=== PATIENT | female | born 1965 | race Caucasian/White ===

== ENCOUNTER → 2016-12-06 | Day surgery (SDC) | payer OTHER ==
[~2016-12-06] VITALS: Ht 154.9 cm; Wt 134.3 kg
[~2016-12-06] MED LIST: ACETAMINOPHEN 650 MG SUPP As Ordered ONE; ACETAMINOPHEN 650 MG SUPP PR ONE; BACL10TA GT; CINN500C9 PO; GLIP10TA6 PO; IBUP200C PO; IBUP800T23 PO; IBUPROFEN 800 MG TAB PO SCH; INSULADS INJ; INSULANT SC; KETOROLAC 60 MG/2 ML VIAL (J1885) As Ordered ONE; LIDOCAINE 2% INJ 100 MG/5 ML SDV (FOR ANES.) As Ordered ONE; LISI40TAB PO; LR 1,000 ML IV SCH; METOCLOPRAMIDE INJ 10MG/2ML VIAL (J2765) As Ordered ONE; METOCLOPRAMIDE INJ 10MG/2ML VIAL (J2765) IV PRN; MIDAZOLAM INJ 2 MG/2 ML VIAL (J2250) As Ordered ONE; ONDANSETRON 4MG/2ML VIAL (J2405) As Ordered ONE; ONDANSETRON 4MG/2ML VIAL (J2405) IV PRN; PERCOCET 5MG/325MG TAB PO PRN; PHENYLEPHRINE INJ 10MG/ML VIAL (J2370) IV ONE; PHENYLEPHRINE INJ 10MG/ML VIAL (J2370) IV SCH; PHENYLephrine HCL 500 MCG/5 ML (100MCG/ML) SYRINGE (J2370) As Ordered ONE; PROPOFOL 200 MG/20 ML VIAL As Ordered ONE; VITA100054 PO; fentaNYL 100 MCG/2 ML INJECTION (J3010) As Ordered ONE; fentaNYL 100 MCG/2 ML INJECTION (J3010) IV PRN
[2016-12-06 08:13] LABS: ANION GAP 8 MEQ/L (8-16); BLOOD UREA NITROGEN 17 MG/DL (7-18); CALCIUM LEVEL 9.1 MG/DL (8.5-10.1); CARBON DIOXIDE LEVEL 26 MEQ/L (21-32); CHLORIDE LEVEL 104 MEQ/L (98-107); CREATININE FOR GFR 0.49 MG/DL (0.55-1.02); GLOMERULAR FILTRATION RATE > 60.0 (>51); GLUCOSE, FASTING 158 MG/DL (70-105); POTASSIUM SERUM 4.4 MEQ/L (3.5-5.1); SODIUM LEVEL 138 MEQ/L (136-145)
[2016-12-06 08:43] LABS: MEAN CORPUSCULAR HEMOGLOBIN 26.7 pg (27.0-33.0); MEAN CORPUSCULAR HGB CONC 33.7 g/dl (32.0-36.5); MEAN CORPUSCULAR VOLUME 79.2 fl (80.0-96.0); RED CELL DISTRIBUTION WIDTH 15.3 % (11.5-14.5); WHITE BLOOD COUNT 9.6 K/mm3 (4.0-10.0)
--- NOTE | 2016-12-06 10:59 | RO ---
DATE OF PROCEDURE: 12/06/2016 PREOPERATIVE DIAGNOSES: 1. Thickened endometrium. 2. Enlarged uterus. 3. Abnormal uterine bleeding. 4. Morbid obesity. POSTOPERATIVE DIAGNOSES: 1. Thickened endometrium. 2. Enlarged uterus. 3. Abnormal uterine bleeding. 4. Morbid obesity. 5. Large intramural fibroid with a distorted cavity. PROCEDURE: 1. Dilation and curettage (D and C). 2. Hysteroscopy. SURGEON: Dr. Tex Archibald ASSEMBLY LEAD PERSON: ANESTHESIA: General. COMPLICATIONS: None. ESTIMATED BLOOD LOSS: Less than 50 mL. FINDINGS: Distorted cavity. Mucosal myoma, cannot rule out an intramural fibroid. SPECIMEN SENT TO THE LAB: Endometrial curetting. Vanessa is a 51-year-old female with a history of thickened endometrium, abnormal bleeding, enlarged uterus and morbid obesity. After counseling in the office, a decision was made to proceed with a D and C, hysteroscopy. PROCEDURE: After obtaining informed consent, the patient was taken to the operating room where general anesthetic was found to be adequate. She was then draped and prepped in the usual sterile fashion in dorsal lithotomy position. Straight catheter of the bladder was performed for approximately 300 mL of clear urine. We then placed a weighted speculum in the posterior fornix of the vagina. Using a Rodríguez retractor, the anterior lip of the cervix was then grasped with a single-tooth tenaculum. The uterus was sounded to approximately 10 cm in size. The cervix was then serially dilated and the hysteroscope was inserted. Upon entering the endometrial cavity, the endometrial cavity was found to be distorted with what appeared to be a submucosal myoma; however, an intramural fibroid could not be rule out as the cavity is completely distorted. The lining appeared to be within normal limits. One of the tubal ostia were visualized as the other one was blocked with the fibroid. At this point, a sharp curettage of the endometrial lining was done. The tissue was sent to pathology for final diagnosis. Please note that the fibroid could not be removed at this point for fear of bleeding. The patient will be counseled during her postoperative visit as she may need further intervention in the form of a hysterectomy if her bleeding persists. The instruments were removed. The patient tolerated the procedure well. She was then transferred to the recovery room in stable condition.
[2016-12-06 13:30] VITALS: BP 138/77
== END | disposition home or self-care (01) ==
LOC: M SDC 07:26
PROVIDERS: ATTEND Obstetrics & Gynecology
DX: N85.00 Endometrial hyperplasia, unspecified (principal); N93.8 Other specified abnormal uterine and vaginal bleeding; D25.1 Intramural leiomyoma of uterus; E11.9 Type 2 diabetes mellitus without complications; Z79.4 Long term (current) use of insulin; E66.01 Morbid (severe) obesity due to excess calories; Z79.899 Other long term (current) drug therapy; G47.30 Sleep apnea, unspecified

== ENCOUNTER 2018-01-14 12:53 | Inpatient (IN) | payer OTHER ==
[2018-01-14 13:46] LABS: HEMATOCRIT 41.9 % (36.0-47.0); HEMOGLOBIN 13.5 g/dl (12.0-16.0); MEAN CORPUSCULAR HEMOGLOBIN 26.1 pg (27.0-33.0); MEAN CORPUSCULAR HGB CONC 32.2 g/dl (32.0-36.5); PLATELET COUNT, AUTOMATED 382 10^3/uL (150-450); RED BLOOD COUNT 5.17 10^6/uL (4.00-5.40)
[2018-01-14 14:21] LABS: AMPHETAMINES LEVEL URINE NEGATIVE (NEGATIVE); BARBITURATES URINE NEGATIVE (NEGATIVE); BENZODIAZEPINES URINE NEGATIVE (NEGATIVE); CANNABINOIDS URINE NEGATIVE (NEGATIVE); COCAINE METABOLITE URINE NEGATIVE (NEGATIVE); METHADONE URINE NEGATIVE (NEGATIVE); OPIATES URINE NEGATIVE (NEGATIVE); PHENCYCLIDINE URINE NEGATIVE (NEGATIVE)
[2018-01-14 14:27] LABS: ALBUMIN 3.5 GM/DL (3.2-5.2); ALBUMIN/GLOBULIN RATIO 0.88 (1.00-1.93); ALKALINE PHOSPHATASE 128 U/L (45-117); ALT/SGPT 20 U/L (12-78); ANION GAP 10 MEQ/L (8-16); AST/SGOT 10 U/L (7-37); BILIRUBIN,DIRECT 0.1 MG/DL (0.0-0.2); BILIRUBIN,TOTAL 0.4 MG/DL (0.2-1.0); BLOOD UREA NITROGEN 10 MG/DL (7-18); CALCIUM LEVEL 9.3 MG/DL (8.5-10.1); CARBON DIOXIDE LEVEL 27 MEQ/L (21-32); CHLORIDE LEVEL 101 MEQ/L (98-107); CREATININE FOR GFR 0.58 MG/DL (0.55-1.30); ETHYL ALCOHOL (ETHANOL) < 0.003 % (0.000-0.010); GLOMERULAR FILTRATION RATE > 60.0 (>51); GLUCOSE, FASTING 142 MG/DL (70-100); POTASSIUM SERUM 3.9 MEQ/L (3.5-5.1); SALICYLATE LEVEL 1.8 MG/DL (5.0-30.0); SODIUM LEVEL 138 MEQ/L (136-145); TOTAL PROTEIN 7.5 GM/DL (6.4-8.2)
[2018-01-14 14:29] LABS: BEDSIDE GLUCOSE 138 MG/DL (70-105)
[2018-01-14 14:57] LABS: ACETAMINOPHEN LEVEL < 2.0 UG/ML (10.0-30.0)
[2018-01-14] MEDS ORDERED: MAALOX 30 ML SUSP *UDC PO (15:30)
[2018-01-14] MEDS ORDERED: MOM 30ML SUSPENSION UDC PO (15:30)
[2018-01-14] MEDS: VITAMIN D 1,000 INTERNATIONAL UNITS TABLET PO (20:19)
[2018-01-14] MEDS: LEVEMIR (INSULIN DETEMIR) 1 UNITS/0.01ML SC (20:21)
[2018-01-14] MEDS: glipiZIDE XL 5 MG TABCR PO (20:21)
[2018-01-14] MEDS: LISINOPRIL 40 MG TAB PO (20:22)
[2018-01-15 02:29] LABS: BEDSIDE GLUCOSE 165 MG/DL (70-105)
[2018-01-15 06:24] LABS: BEDSIDE GLUCOSE 99 MG/DL (70-105)
[2018-01-15] MEDS: VENLAFAXINE **XR** 37.5 MG CAPSULE PO (07:56)
[2018-01-15] MEDS: PALIPERIDONE 3 MG ER TAB (INVEGA) PO ×2 (07:56→21:02)
[2018-01-15 17:06] LABS: BEDSIDE GLUCOSE 148 MG/DL (70-105)
[2018-01-15] MEDS: VITAMIN D 1,000 INTERNATIONAL UNITS TABLET PO (21:01)
[2018-01-15] MEDS: LISINOPRIL 40 MG TAB PO (21:01)
[2018-01-15] MEDS: glipiZIDE XL 5 MG TABCR PO (21:02)
[2018-01-15] MEDS: LEVEMIR (INSULIN DETEMIR) 1 UNITS/0.01ML SC (21:03)
[2018-01-16 06:25] LABS: BEDSIDE GLUCOSE 134 MG/DL (70-105)
[2018-01-16 06:51] LABS: HEMATOCRIT 40.2 % (36.0-47.0); HEMOGLOBIN 12.5 g/dl (12.0-16.0); MEAN CORPUSCULAR HGB CONC 31.1 g/dl (32.0-36.5); MEAN CORPUSCULAR VOLUME 83.8 fl (80.0-96.0); PLATELET COUNT, AUTOMATED 302 10^3/uL (150-450); RED CELL DISTRIBUTION WIDTH 16.2 % (11.5-14.5); WHITE BLOOD COUNT 11.3 10^3/uL (4.0-10.0)
[2018-01-16] MEDS: PALIPERIDONE 3 MG ER TAB (INVEGA) PO ×2 (08:30→21:00)
[2018-01-16] MEDS: VENLAFAXINE **XR** 37.5 MG CAPSULE PO (08:30)
[2018-01-16] MEDS: ACETAMINOPHEN TAB 650MG DOSE (2X325MG) PO (11:56)
[2018-01-16 17:07] LABS: BEDSIDE GLUCOSE 234 MG/DL (70-105)
[2018-01-16] MEDS: LISINOPRIL 40 MG TAB PO (21:00)
[2018-01-16] MEDS: VITAMIN D 1,000 INTERNATIONAL UNITS TABLET PO (21:00)
[2018-01-16] MEDS: glipiZIDE XL 5 MG TABCR PO (21:01)
[2018-01-16] MEDS: LEVEMIR (INSULIN DETEMIR) 1 UNITS/0.01ML SC (21:06)
[2018-01-16] MEDS: traZODone 50 MG TAB PO (23:50)
[2018-01-17 06:25] LABS: BEDSIDE GLUCOSE 135 MG/DL (70-105)
[2018-01-17] MEDS: VENLAFAXINE **XR** 75MG CAPSULE PO (08:15)
[2018-01-17] MEDS: ACETAMINOPHEN TAB 650MG DOSE (2X325MG) PO (08:15)
[2018-01-17] MEDS: PALIPERIDONE 3 MG ER TAB (INVEGA) PO ×2 (08:15→20:35)
[2018-01-17] MEDS ORDERED: traZODone 25MG PER 1/2 TABLET PO (11:30)
[2018-01-17 17:02] LABS: BEDSIDE GLUCOSE 256 MG/DL (70-105)
[2018-01-17 20:34] LABS: BEDSIDE GLUCOSE 224 MG/DL (70-105)
[2018-01-17] MEDS: LEVEMIR (INSULIN DETEMIR) 1 UNITS/0.01ML SC (20:34)
[2018-01-17] MEDS: LISINOPRIL 40 MG TAB PO (20:35)
[2018-01-17] MEDS: VITAMIN D 1,000 INTERNATIONAL UNITS TABLET PO (20:35)
[2018-01-17] MEDS: glipiZIDE XL 5 MG TABCR PO (20:35)
[2018-01-18 06:30] LABS: BEDSIDE GLUCOSE 127 MG/DL (70-105)
[2018-01-18] MEDS: VENLAFAXINE **XR** 75MG CAPSULE PO (08:55)
[2018-01-18] MEDS: PALIPERIDONE 3 MG ER TAB (INVEGA) PO ×2 (08:55→20:36)
[2018-01-18 17:21] LABS: BEDSIDE GLUCOSE 165 MG/DL (70-105)
[2018-01-18] MEDS: SIMETHICONE 80 MG CHEW TAB PO ×2 (18:22→20:36)
[2018-01-18] MEDS: glipiZIDE XL 5 MG TABCR PO (20:36)
[2018-01-18] MEDS: VITAMIN D 1,000 INTERNATIONAL UNITS TABLET PO (20:36)
[2018-01-18] MEDS: LISINOPRIL 40 MG TAB PO (20:37)
[2018-01-18 20:39] LABS: BEDSIDE GLUCOSE 242 MG/DL (70-105)
[2018-01-18] MEDS: LEVEMIR (INSULIN DETEMIR) 1 UNITS/0.01ML SC (20:40)
[2018-01-19] MEDS: SIMETHICONE 80 MG CHEW TAB PO ×4 (06:16→23:17)
[2018-01-19] MEDS: VENLAFAXINE **XR** 75MG CAPSULE PO (08:20)
[2018-01-19 17:07] LABS: BEDSIDE GLUCOSE 140 MG/DL (70-105)
[2018-01-19] MEDS: LEVEMIR (INSULIN DETEMIR) 1 UNITS/0.01ML SC (20:06)
[2018-01-19] MEDS: glipiZIDE XL 5 MG TABCR PO (20:06)
[2018-01-19] MEDS: VITAMIN D 1,000 INTERNATIONAL UNITS TABLET PO (20:06)
[2018-01-19] MEDS: PALIPERIDONE 3 MG ER TAB (INVEGA) PO (20:06)
[2018-01-19] MEDS: LISINOPRIL 40 MG TAB PO (20:06)
[2018-01-19 20:08] LABS: BEDSIDE GLUCOSE 235 MG/DL (70-105)
[2018-01-20] MEDS: SIMETHICONE 80 MG CHEW TAB PO ×3 (06:10→17:54)
[2018-01-20 06:42] LABS: BEDSIDE GLUCOSE 121 MG/DL (70-105)
[2018-01-20] MEDS: VENLAFAXINE **XR** 75MG CAPSULE PO (08:12)
[2018-01-20 17:02] LABS: BEDSIDE GLUCOSE 141 MG/DL (70-105)
[2018-01-20] MEDS: LISINOPRIL 40 MG TAB PO (21:28)
[2018-01-20] MEDS: VITAMIN D 1,000 INTERNATIONAL UNITS TABLET PO (21:28)
[2018-01-20] MEDS: glipiZIDE XL 5 MG TABCR PO (21:28)
[2018-01-20] MEDS: LEVEMIR (INSULIN DETEMIR) 1 UNITS/0.01ML SC (21:28)
[2018-01-20] MEDS: PALIPERIDONE 3 MG ER TAB (INVEGA) PO (21:28)
[2018-01-21] MEDS: SIMETHICONE 80 MG CHEW TAB PO ×3 (06:07→11:16)
[2018-01-21 06:14] LABS: BEDSIDE GLUCOSE 167 MG/DL (70-105)
[2018-01-21] MEDS: VENLAFAXINE **XR** 75MG CAPSULE PO (08:38)
== END 2018-01-21 12:00 | disposition home or self-care (01) | DRG 751 ==
LOC: M PSY 01-20 03:38 → M ED 12:53 → M ED INP 15:28 → M PSY 16:50
DX: F32.3 Major depressive disorder, single episode, severe with psychotic features (principal); R45.851 Suicidal ideations; E11.9 Type 2 diabetes mellitus without complications; E55.9 Vitamin D deficiency, unspecified; Z68.43 Body mass index [BMI] 50.0-59.9, adult; I10 Essential (primary) hypertension; D72.829 Elevated white blood cell count, unspecified; M19.90 Unspecified osteoarthritis, unspecified site; E66.9 Obesity, unspecified; G47.33 Obstructive sleep apnea (adult) (pediatric); F41.9 Anxiety disorder, unspecified; F17.200 Nicotine dependence, unspecified, uncomplicated; Z79.899 Other long term (current) drug therapy; Z88.1 Allergy status to other antibiotic agents

== ENCOUNTER 2019-09-18 16:48 | Inpatient (IN) | payer OTHER ==
[~2019-09-18] VITALS: Ht 152.4 cm; Wt 145.0 kg
[~2019-09-18 16:48] MED LIST changes: -ACETAMINOPHEN 650 MG SUPP As Ordered ONE; -ACETAMINOPHEN 650 MG SUPP PR ONE; -BACL10TA GT; +BACL1TAB8 GT; +BASA100I SC; +GLIP10TA18 PO; +IBUP1TAB7 PO; -IBUP200C PO; +IBUP200C25 PO; -IBUP800T23 PO; +IBUPOTC PO; -IBUPROFEN 800 MG TAB PO SCH; -KETOROLAC 60 MG/2 ML VIAL (J1885) As Ordered ONE; -LIDOCAINE 2% INJ 100 MG/5 ML SDV (FOR ANES.) As Ordered ONE; +LISI40TA PO; -LISI40TAB PO; -LR 1,000 ML IV SCH; -METOCLOPRAMIDE INJ 10MG/2ML VIAL (J2765) As Ordered ONE; -METOCLOPRAMIDE INJ 10MG/2ML VIAL (J2765) IV PRN; -MIDAZOLAM INJ 2 MG/2 ML VIAL (J2250) As Ordered ONE; -ONDANSETRON 4MG/2ML VIAL (J2405) As Ordered ONE; -ONDANSETRON 4MG/2ML VIAL (J2405) IV PRN; +PALI1TAB2 PO; -PERCOCET 5MG/325MG TAB PO PRN; -PHENYLEPHRINE INJ 10MG/ML VIAL (J2370) IV ONE; -PHENYLEPHRINE INJ 10MG/ML VIAL (J2370) IV SCH; -PHENYLephrine HCL 500 MCG/5 ML (100MCG/ML) SYRINGE (J2370) As Ordered ONE; -PROPOFOL 200 MG/20 ML VIAL As Ordered ONE; +VENL75CA47 PO; -fentaNYL 100 MCG/2 ML INJECTION (J3010) As Ordered ONE; -fentaNYL 100 MCG/2 ML INJECTION (J3010) IV PRN
[2019-09-18 18:10] LABS: HEMATOCRIT 43.2 % (36.0-47.0); HEMOGLOBIN 13.5 g/dl (12.0-15.5); MEAN CORPUSCULAR HGB CONC 31.3 g/dl (32.0-36.5); MEAN CORPUSCULAR VOLUME 83.1 fl (80.0-96.0); PLATELET COUNT, AUTOMATED 302 10^3/uL (150-450)
[2019-09-18] MEDS ORDERED: ALPR0.5T3 PO (18:21)
[2019-09-18] MEDS ORDERED: PALI1TAB PO (18:21)
[2019-09-18] MEDS ORDERED: VICT18IN2 PO (18:21)
[2019-09-18] MEDS ORDERED: BUSP30TA PO ×2 (18:21→20:16)
[2019-09-18] MEDS ORDERED: LEXA1TAB PO (18:21)
[2019-09-18 18:44] LABS: AMPHETAMINES LEVEL URINE NEGATIVE (NEGATIVE); BARBITURATES URINE NEGATIVE (NEGATIVE); BENZODIAZEPINES URINE POSITIVE (NEGATIVE); CANNABINOIDS URINE NEGATIVE (NEGATIVE); COCAINE METABOLITE URINE NEGATIVE (NEGATIVE); METHADONE URINE NEGATIVE (NEGATIVE); OPIATES URINE NEGATIVE (NEGATIVE); PHENCYCLIDINE URINE NEGATIVE (NEGATIVE)
[2019-09-18 18:52] LABS: ACETAMINOPHEN LEVEL < 2.0 UG/ML (10.0-30.0); ALBUMIN 3.4 GM/DL (3.2-5.2); ALT/SGPT 41 U/L (12-78); BILIRUBIN,DIRECT < 0.1 MG/DL (0.0-0.2); BILIRUBIN,TOTAL 0.4 MG/DL (0.2-1.0); BLOOD UREA NITROGEN 11 MG/DL (7-18); CALCIUM LEVEL 8.9 MG/DL (8.5-10.1); CARBON DIOXIDE LEVEL 29 MEQ/L (21-32); CHLORIDE LEVEL 107 MEQ/L (98-107); CREATININE FOR GFR 0.43 MG/DL (0.55-1.30); GLOMERULAR FILTRATION RATE > 60.0 (>51); GLUCOSE, FASTING 89 MG/DL (70-100); POTASSIUM SERUM 3.9 MEQ/L (3.5-5.1); SALICYLATE LEVEL < 1.7 MG/DL (5.0-30.0); SODIUM LEVEL 139 MEQ/L (136-145); TOTAL PROTEIN 7.5 GM/DL (6.4-8.2)
[2019-09-18 18:53] LABS: ETHYL ALCOHOL (ETHANOL) < 0.003 % (0.000-0.010)
[2019-09-18] MEDS ORDERED: MAALOX 30 ML SUSP *UDC PO PRN (20:30)
[2019-09-18] MEDS ORDERED: NICOTINE 21MG/24HR 1 EA TRANSDERMAL TD PRN (20:30)
[2019-09-18] MEDS ORDERED: OLANZapine ORAL DISINTEGRATING TAB 5MG PO PRN (20:30)
[2019-09-18] MEDS ORDERED: ACETAMINOPHEN TAB 650MG DOSE (2X325MG) PO ONE (20:30)
[2019-09-18] MEDS ORDERED: DEXTROSE 50% 50 ML SYRINGE IV PRN (20:30)
[2019-09-18] MEDS ORDERED: IBUPROFEN 800 MG TAB PO PRN (20:30)
[2019-09-18] MEDS ORDERED: GLUCOSE 4 GM CHEW TABLET PO PRN (20:30)
[2019-09-18] MEDS ORDERED: traZODone 50 MG TAB PO PRN (20:30)
[2019-09-18] MEDS ORDERED: ALPRAZolam 0.5 MG TAB PO PRN (20:30)
[2019-09-18] MEDS ORDERED: GLUCAGON FOR INJ 1 MG VIAL (J1610) SC PRN (20:30)
[2019-09-18] MEDS ORDERED: MOM 30ML SUSPENSION UDC PO PRN (20:30)
[2019-09-18] MEDS ORDERED: HumaLOG INSULIN (NovoLOG) PER UNIT SC SCH (21:00)
[2019-09-18] MEDS ORDERED: ACETAMINOPHEN TAB 650MG DOSE (2X325MG) PO PRN (23:15)
[2019-09-18] MEDS ORDERED: PALIPERIDONE 3 MG ER TAB (INVEGA) PO SCH (23:15)
[2019-09-18 23:34] VITALS: BP 131/69
[2019-09-19] MEDS: HumaLOG INSULIN (NovoLOG) PER UNIT SC SCH ×2 (06:30→11:59)
[2019-09-19 06:47] VITALS: BP 129/71
[2019-09-19] MEDS ORDERED: FLUBLOK(EGG FREE)(QUAD)INFLUENZA VACC 0.5ML SYRINGE (90682)18YRS&OLDER IM ONE (09:00)
[2019-09-19] MEDS ORDERED: LISINOPRIL 40 MG TAB PO SCH (09:00)
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
--- NOTE | 2019-09-19 10:17 | MHDSPDOC ---
[facility] Discharge Summary Discharge Summary DATE OF ADMISSION: Sep 18, 2019 at 8:23 pm DATE OF DISCHARGE: Sep 19, 2019 DISCHARGE DIAGNOSES: Major Depressive d/o mild w/o psychosis borderline personality d/o REASON FOR ADMISSION: Patient is a 54 -year-old , female, with major depressive d/o, numerous admits [facility] OF [facility] with last 01/17/18 who was brought to ED by CM due to pt endorsing SI with numerous plans that she stated "all the the plans I have probably won't kill me" but wouldn't disclose what the plans were per ED. Pt stated in ED "my life is hopeless and I want to kill myself" with thoughts or SI and plans the last 3 days. Pt endorsed multiple current psychosocial stressors in her life making her feel depressed in the ED such as problems with her 2 adult sons in her home who don't clean up after themselves causing her trailer to be "trash," upcoming eviction a fear of homelessness as she is having difficulty finding a 3 bedroom apt in [facility] and believes they're "nonexistent." Also stated in ED she's still morning the of her boyfriend in 2018. Pt seen and states she doesn't need to be b/c "I'm not suicidal and never really was." States that nothing we do for her will help her b/c her problem is that there's a tree on her home and until that is removed, which she has to find a way to get it removed, nothing will change regard her mood. She appears euthymic but irritable and annoyed she is here as doesn't believe she needs to be. Pt states she wants to go home. She denied SI/HI, hallucinations, delusions thru out her interview and appeared in affect to be euthymic yet irritable due to home circumstances. Feels her meds are good the way they are currently and she's tolerating them well. Feels safe to go home today. CONSULTANTS INVOLVED: medicine regarding DM2 TREATMENT AND PROGRESS ON THE UNIT : Pt was admitted to ON LICENSE OF [facility], seen for psychiatric assessment and stated she didn't need to be here "I'm not suicid al... I never really was... nothing you do for me here will help me as I have to get a tree removed from being on home and until that's done I'm not going to get any better." She was restarted on her outpatient psychiatric and medical medications on admission and stated that they were beneficial at their current dose, that she didn't want them changed, and that she tolerated them well. She was provided trazodone 50mg qhs prn insomnia. Pt found her medications beneficial and tolerated them well. She attended groups daily during her stay. Her symptoms improved with treatment. On day of discharge she denied depression, anxiety, insomnia, SI/HI, hallucinations, delusions. She was discharged home with [facility] and CM. DISCHARGE ASSESSMENT: Pt seen and states she doesn't need to be b/c "I'm not suicidal and never really was." States that nothing we do for her will help her b/c her problem is that there's a tree on her home and until that is removed, which she has to find a way to get it removed, nothing will change regard her mood. She appears euthymic but irritable and annoyed she is here as doesn't believe she needs to be. Pt states she wants to go home. She denied SI/HI, hallucinations, delusions thru out her interview and appeared in affect to be euthymic yet irritable due to home circumstances. Feels her meds are good the way they are currently and she's tolerating them well. Feels safe to go home today. MENTAL STATUS EXAMINATION ON DISCHARGE: General Appearance: unkempt, disheveled, appears stated age, hospital scubs/clothing, other (malodorous) Build: overweight, other (obese) Demeanor: other (very irritable) Eye Contact: average Activity: anxious, other (irritable) Behavior: cooperative Speech: clear, spontaneous, reg/rate,rhythm,volume Mood: euthymic, anxious, irritable Mood "I'm not suicidal... I never really was... I want to go home to get the tree off my house." Affect: full, appropriate, congruent, anxious Thought Process: logical/linear, intact Thought Content (Delusions): none reported, denies SI, HI, AVH Thought Content (Other): none reported Thought Content (Aggressive): none reported Perception (Hallucinations): none reported Perception (Other): none reported Cognition (Impairment of): none reported Cognition(Intelligence Est.): average Oriented: Awake, Alert, Oriented times three Insight: good Judgment: Good Psychosis: Denies MEDICATIONS ON DISCHARGE: continue outpatient medications no prescriptions given (has meds at home thru [facility] ) PLAN/FOLLOWUP ARRANGEMENTS: [facility] The amount of time spent in the coordination of care for this patient was approximately 30 minutes. Vital Signs/I&Os Vital Signs Date Time Temp Pulse Resp B/P (MAP) Pulse Ox O2 Delivery O2 Flow Rate FiO2 09/19/19 06:47 98.2 83 16 129/71 (90) Room Air 09/18/19 23:34 99 Laboratory Data Labs 24H Laboratory Tests 2 09/18/19 17:57: Nucleated Red Blood Cells % (auto) 0.0, Urine Opiates Screen NEGATIVE, Urine Methadone Screen NEGATIVE, Urine Barbiturates Screen NEGATIVE, Urine Phencyclidine Screen NEGATIVE, Urine Amphetamines Screen NEGATIVE, Urine Benzodiazepines Screen POSITIVEH, Urine Cocaine Metabolite Screen NEGATIVE, Urine Cannabinoids Screen NEGATIVE 09/18/19 17:58: Anion Gap 3L, Glomerular Filtration Rate > 60.0, Calcium Level 8.9, Total Bilirubin 0.4, Direct Bilirubin < 0.1, Aspartate Amino Transf (AST/SGOT) 21, Alanine Aminotransferase (ALT/SGPT) 41, Alkaline Phosphatase 118H, Total Protein 7.5, Albumin 3.4, Albumin/Globulin Ratio 0.83L, Thyroid Stimulating Hormone (TSH) 2.020, Salicylates Level < 1.7L, Acetaminophen Level < 2.0L, Ethyl Alcohol Level < 0.003 09/18/19 23:06: Bedside Glucose (Misc Panel) 106H 09/19/19 06:04: Bedside Glucose (Misc Panel) 86 CBC/BMP Laboratory Tests 09/18/19 17:57 09/18/19 17:58 Medications Scheduled Alprazolam (Alprazolam) 0.5 Mg Tablet, 0.25 MG PO BID, (Reported) Buspirone HCl (Buspirone HCl) 30 Mg Tablet, 30 MG PO QHS, (Reported) Buspirone HCl (Buspirone HCl) 30 Mg Tablet, 15 MG PO DAILY, (Reported) Cholecalciferol (Vitamin D3) (Vitamin D3) 1,000 Unit Cap, 1,000 UNIT PO QHS, (Reported) Escitalopram Oxalate (Lexapro) 10 Mg Tablet, 10 MG PO DAILY, (Reported) Glipizide (Glipizide ER) 10 Mg Tab, 10 MG PO BID, (Reported) Insulin Glargine,Hum.rec.anlog (Basaglar Kwikpen U-100) 100 Unit/Ml Inj, 60 UNIT SC BID, (Reported) Liraglutide (Victoza 3-[place]) 0.6 Mg/0.1 Ml Pen.injctr, 1.8 MG PO DAILY, (Reported) Lisinopril (Lisinopril) 40 Mg Tab, 40 MG PO DAILY, (Reported) Paliperidone (Paliperidone ER) 1.5 Mg Tab.er.24, 1.5 MG PO QHS, (Reported) Scheduled PRN Ibuprofen (Ibuprofen) 200 Mg Tab, 800 MG PO Q8H PRN for PAIN, (Reported) Allergies Coded Allergies: erythromycin base (Verified Adverse Reaction, Unknown, CONNER, 09/18/19) REN ARVIZU DO Sep 19, 2019 10:17 am
== END 2019-09-19 13:58 | disposition home or self-care (01) | DRG 751 ==
LOC: M ED 16:48 → M ED INP 20:23 → M PSY 21:42
PROVIDERS: ADMIT Psychiatry & Neurology Psychiatry; ATTEND Psychiatry & Neurology Psychiatry
DX: F32.0 Major depressive disorder, single episode, mild (principal); F60.3 Borderline personality disorder; Z79.899 Other long term (current) drug therapy; Z88.1 Allergy status to other antibiotic agents

== ENCOUNTER → 2019-12-05 | Outpatient (REF) | payer OTHER ==
[~2019-12-05] MED LIST changes: +ALPR0.5T3 PO; +BUSP30TA PO; +LEXA1TAB PO; +PALI1TAB PO; +VICT18IN2 PO
[2019-12-05 16:40] LABS: MALB URINE SIEMENS 38.1 MG/L; MAU/CREAT RATIO 26.4 MCG/MG (0.0-30.0)
== END ==
LOC: M LAB REF 15:26
PROVIDERS: ATTEND Nurse Practitioner Family
DX: E11.65 Type 2 diabetes mellitus with hyperglycemia (principal)

== ENCOUNTER → 2021-07-13 | Outpatient (REF) | payer OTHER ==
[~2021-07-13] MED LIST changes: -LISI40TA PO; +LISI40TA4 PO
[2021-07-13 18:35] LABS: MAU/CREAT RATIO 21.3 MCG/MG (0.0-30.0)
== END ==
LOC: M LAB REF 17:02
PROVIDERS: ATTEND Nurse Practitioner Family
DX: E11.65 Type 2 diabetes mellitus with hyperglycemia (principal)

== ENCOUNTER → 2022-05-25 | Outpatient (REF) | payer OTHER ==
[2022-05-25 16:52] LABS: BASO # 0.1 10^3/uL (0.0-0.2); BASO % 0.5 % (0.0-1.0); EOS # 0.2 10^3/uL (0.0-0.5); EOS % 1.5 % (0.0-3.0); HEMATOCRIT 43.7 % (36.0-47.0); LYMPH # 2.6 10^3/uL (1.5-5.0); LYMPH % 26.2 % (24.0-44.0); MEAN CORPUSCULAR HEMOGLOBIN 26.3 pg (27.0-33.0); MONO # 0.5 10^3/uL (0.0-0.8); MONO % 4.7 % (2.0-8.0); NEUTROPHILS # 6.6 10^3/uL (1.5-8.5); NEUTROPHILS % 66.6 % (36.0-66.0); PLATELET COUNT, AUTOMATED 335 10^3/uL (150-450); RED BLOOD COUNT 5.33 10^6/uL (4.00-5.40); WHITE BLOOD COUNT 9.9 10^3/uL (4.0-10.0)
[2022-05-25 17:09] LABS: ALBUMIN 3.5 GM/DL (3.2-5.2); ALT/SGPT 35 U/L (12-78); BILIRUBIN,TOTAL 0.3 MG/DL (0.2-1.0); BLOOD UREA NITROGEN 16 MG/DL (7-18); C REACTIVE PROTEIN QUANTITATIV 2.12 MG/DL (0.00-0.30); CALCIUM LEVEL 10.7 MG/DL (8.5-10.1); CARBON DIOXIDE LEVEL 28 MEQ/L (21-32); CHLORIDE LEVEL 100 MEQ/L (98-107); GLOMERULAR FILTRATION RATE > 60.0 (>51); GLUCOSE, FASTING 300 MG/DL (70-100); POTASSIUM SERUM 4.7 MEQ/L (3.5-5.1); SODIUM LEVEL 135 MEQ/L (136-145); TOTAL PROTEIN 7.5 GM/DL (6.4-8.2)
[2022-05-25 17:50] LABS: ERYTHROCYTE SEDIMENTATION RATE 36 mm/hr (0-30)
== END ==
LOC: M SFHCRHEU 13:55
PROVIDERS: ATTEND Internal Medicine Rheumatology
DX: M35.3 Polymyalgia rheumatica (principal); R79.82 Elevated C-reactive protein (CRP)

== ENCOUNTER → 2022-07-27 | Outpatient (CLI) | payer OTHER | LOC: M PAIN 13:00 | PROVIDERS: ATTEND Nurse Practitioner Family | DX: M54.50 Low back pain, unspecified (principal); M16.0 Bilateral primary osteoarthritis of hip; E11.9 Type 2 diabetes mellitus without complications; M77.32 Calcaneal spur, left foot; F32.A Depression, unspecified; F41.9 Anxiety disorder, unspecified; D64.9 Anemia, unspecified; I10 Essential (primary) hypertension; Z87.442 Personal history of urinary calculi; G47.30 Sleep apnea, unspecified; Z87.891 Personal history of nicotine dependence; Z79.84 Long term (current) use of oral hypoglycemic drugs; Z79.899 Other long term (current) drug therapy; Z88.8 Allergy status to other drugs, medicaments and biological substances; Z88.6 Allergy status to analgesic agent; Z88.1 Allergy status to other antibiotic agents; Z91.048 Other nonmedicinal substance allergy status ==

== ENCOUNTER → 2022-10-17 | Outpatient (CLI) | payer OTHER | LOC: M PAIN 14:15 | PROVIDERS: ATTEND Anesthesiology | DX: M54.50 Low back pain, unspecified (principal); M15.9 Polyosteoarthritis, unspecified; M77.32 Calcaneal spur, left foot; F32.A Depression, unspecified; F41.9 Anxiety disorder, unspecified; D64.9 Anemia, unspecified; I10 Essential (primary) hypertension; G47.30 Sleep apnea, unspecified; M25.552 Pain in left hip; M25.551 Pain in right hip; Z87.442 Personal history of urinary calculi; Z87.891 Personal history of nicotine dependence; Z79.899 Other long term (current) drug therapy; Z88.1 Allergy status to other antibiotic agents; Z88.6 Allergy status to analgesic agent; Z88.8 Allergy status to other drugs, medicaments and biological substances; Z91.048 Other nonmedicinal substance allergy status ==

== ENCOUNTER → 2022-12-06 | Outpatient (CLI) | payer OTHER | LOC: M PAIN 13:45 | PROVIDERS: ATTEND Anesthesiology | DX: M54.16 Radiculopathy, lumbar region (principal); M54.50 Low back pain, unspecified; M15.9 Polyosteoarthritis, unspecified; E11.9 Type 2 diabetes mellitus without complications; M77.32 Calcaneal spur, left foot; F32.A Depression, unspecified; F41.9 Anxiety disorder, unspecified; D64.9 Anemia, unspecified; I10 Essential (primary) hypertension; Z87.442 Personal history of urinary calculi; G47.30 Sleep apnea, unspecified; Z87.891 Personal history of nicotine dependence; Z79.84 Long term (current) use of oral hypoglycemic drugs; Z79.899 Other long term (current) drug therapy; Z88.1 Allergy status to other antibiotic agents; Z88.6 Allergy status to analgesic agent; Z88.8 Allergy status to other drugs, medicaments and biological substances; J30.89 Other allergic rhinitis ==

== ENCOUNTER → 2023-01-24 | Outpatient (CLI) | payer OTHER | LOC: M PAIN 10:00 | PROVIDERS: ATTEND Anesthesiology | DX: M51.16 Intervertebral disc disorders with radiculopathy, lumbar region (principal); M47.816 Spondylosis without myelopathy or radiculopathy, lumbar region; M15.9 Polyosteoarthritis, unspecified; M77.32 Calcaneal spur, left foot; F32.A Depression, unspecified; F41.9 Anxiety disorder, unspecified; I10 Essential (primary) hypertension; G47.30 Sleep apnea, unspecified; Z87.891 Personal history of nicotine dependence; E11.9 Type 2 diabetes mellitus without complications; Z79.84 Long term (current) use of oral hypoglycemic drugs; Z79.899 Other long term (current) drug therapy; Z88.1 Allergy status to other antibiotic agents; Z88.6 Allergy status to analgesic agent; Z88.8 Allergy status to other drugs, medicaments and biological substances; Z91.048 Other nonmedicinal substance allergy status ==

== ENCOUNTER → 2023-02-21 | Outpatient (CLI) | payer OTHER | LOC: M PAIN 11:30 | PROVIDERS: ATTEND Anesthesiology | DX: M47.816 Spondylosis without myelopathy or radiculopathy, lumbar region (principal); G89.29 Other chronic pain; E11.9 Type 2 diabetes mellitus without complications; I10 Essential (primary) hypertension; G47.30 Sleep apnea, unspecified; Z86.59 Personal history of other mental and behavioral disorders; Z87.891 Personal history of nicotine dependence; Z88.1 Allergy status to other antibiotic agents; Z88.6 Allergy status to analgesic agent; Z88.8 Allergy status to other drugs, medicaments and biological substances; Z91.09 Other allergy status, other than to drugs and biological substances; Z79.4 Long term (current) use of insulin; Z79.84 Long term (current) use of oral hypoglycemic drugs; Z79.85 Long-term (current) use of injectable non-insulin antidiabetic drugs; Z79.899 Other long term (current) drug therapy ==

== ENCOUNTER → 2023-03-20 | Outpatient (CLI) | payer OTHER | LOC: M PAIN 13:45 | PROVIDERS: ATTEND Nurse Practitioner Family | DX: M47.816 Spondylosis without myelopathy or radiculopathy, lumbar region (principal); M15.9 Polyosteoarthritis, unspecified; E11.9 Type 2 diabetes mellitus without complications; F32.A Depression, unspecified; F41.9 Anxiety disorder, unspecified; M77.32 Calcaneal spur, left foot; D64.9 Anemia, unspecified; I10 Essential (primary) hypertension; G47.30 Sleep apnea, unspecified; Z87.891 Personal history of nicotine dependence; Z79.84 Long term (current) use of oral hypoglycemic drugs; Z79.899 Other long term (current) drug therapy; Z88.1 Allergy status to other antibiotic agents; Z88.6 Allergy status to analgesic agent; Z88.8 Allergy status to other drugs, medicaments and biological substances; Z91.048 Other nonmedicinal substance allergy status ==

== ENCOUNTER 2024-12-17 10:04 | Day surgery (SDC) | payer MEDICARE, MEDICAID ==
[~2024-12-17] VITALS: Ht 152.4 cm; Wt 159.3 kg
[~2024-12-17 10:04] MED LIST changes: +GLIP10TA15 PO; -GLIP10TA6 PO; +INSU100V6 SQ; +LANTINJ4 SQ; +MIDAZOLAM INJ 2MG/2ML VIAL As Ordered ONE; +PHENYLEPHRINE 10% OPHTH SOL 5ML OS PRN; +VITA100093 PO
[2024-12-17] MEDS: PHENYLEPHRINE 2.5% OPHTH SOL 2ML OS SCH (11:21)
[2024-12-17] MEDS: OFLOXACIN 0.3 % (OCUFLOX) OPTH SOL 5ML OS ONE (11:21)
[2024-12-17] MEDS: CYCLOPENTOLATE 1% OPHTH SOLN 2ML BTL OS SCH (11:21)
[2024-12-17] MEDS: LIDOCAINE 3.5 % 1ML OPHTH TOPICAL GEL OU ONE (11:21)
[2024-12-17] MEDS: TROPICAMIDE 1% OPHTH SOLN 15ML OS SCH (11:21)
[2024-12-17] MEDS ORDERED: fentaNYL 100 MCG/2 ML INJECTION As Ordered ONE (12:11)
[2024-12-17] MEDS: LIDOCAINE 1% SDV 5ML VIAL As Ordered ONE (12:20)
[2024-12-17] MEDS: CEFUROXIME 1MG/0.1ML INTRACAMERAL INJ As Ordered ONE (12:25)
[2024-12-17] MEDS: BSS IRRIG/VANCO(10MG)/TOBRA(5MG)/EPINEPH(1:1000-0.5CC)500ML BAG-ORONLY As Ordered ONE (12:25)
[2024-12-17 12:34] VITALS: BP 126/60; TEMP 97.4; O2SAT 96
== END 2024-12-17 12:50 | disposition home or self-care (01) ==
LOC: M SDC 10:04
PROVIDERS: ATTEND Ophthalmology
DX: E11.36 Type 2 diabetes mellitus with diabetic cataract (principal); H25.12 Age-related nuclear cataract, left eye; I10 Essential (primary) hypertension; G47.30 Sleep apnea, unspecified; F17.290 Nicotine dependence, other tobacco product, uncomplicated; Z79.899 Other long term (current) drug therapy; Z79.84 Long term (current) use of oral hypoglycemic drugs; Z79.4 Long term (current) use of insulin; Z88.8 Allergy status to other drugs, medicaments and biological substances; Z88.1 Allergy status to other antibiotic agents
CPT/HCPCS: 66984; J0697; J2250; J3010; V2632

== ENCOUNTER 2024-12-24 09:50 | Day surgery (SDC) | payer MEDICARE, MEDICAID ==
[~2024-12-24] VITALS: Ht 154.9 cm; Wt 155.9 kg
[2024-12-24] MEDS: LIDOCAINE 1% SDV 5ML VIAL As Ordered ONE (06:54)
[~2024-12-24 09:50] MED LIST changes: +PHENYLEPHRINE 10% OPHTH SOL 5ML OD PRN; -PHENYLEPHRINE 10% OPHTH SOL 5ML OS PRN
[2024-12-24] MEDS: PHENYLEPHRINE 2.5% OPHTH SOL 2ML OD SCH (12:39)
[2024-12-24] MEDS: CYCLOPENTOLATE 1% OPHTH SOLN 2ML BTL OD SCH (12:39)
[2024-12-24] MEDS: TROPICAMIDE 1% OPHTH SOLN 15ML OD SCH (12:39)
[2024-12-24] MEDS: LIDOCAINE 3.5 % 1ML OPHTH TOPICAL GEL OU ONE (12:39)
[2024-12-24] MEDS: OFLOXACIN 0.3 % (OCUFLOX) OPTH SOL 5ML OD ONE (12:39)
[2024-12-24] MEDS ORDERED: fentaNYL 100 MCG/2 ML INJECTION As Ordered ONE (14:06)
[2024-12-24] MEDS ORDERED: INSULIN LISPRO (NovoLOG) PER UNIT SC PRN (14:15)
[2024-12-24] MEDS ORDERED: GLUCOSE 4 GM CHEW PO PRN (14:15)
[2024-12-24] MEDS ORDERED: GLUCAGON INJ 1MG VIAL SC PRN (14:15)
[2024-12-24] MEDS ORDERED: DEXTROSE 50% 50ML SYRINGE As Ordered ONE (14:17)
[2024-12-24] MEDS: DEXTROSE 50% 50ML SYRINGE IV PRN (14:20)
[2024-12-24] MEDS: BSS IRRIG/VANCO(10MG)/TOBRA(5MG)/EPINEPH(1:1000-0.5CC)500ML BAG-ORONLY As Ordered ONE (15:30)
[2024-12-24] MEDS: CEFUROXIME 1MG/0.1ML INTRACAMERAL INJ As Ordered ONE (15:31)
[2024-12-24 15:39] VITALS: BP 126/65; TEMP 97.4; O2SAT 97
== END 2024-12-24 16:06 | disposition home or self-care (01) ==
LOC: M SDC 09:50
PROVIDERS: ATTEND Ophthalmology
DX: E11.36 Type 2 diabetes mellitus with diabetic cataract (principal); H25.11 Age-related nuclear cataract, right eye; I10 Essential (primary) hypertension; G47.30 Sleep apnea, unspecified; Z79.82 Long term (current) use of aspirin; Z79.4 Long term (current) use of insulin; F17.290 Nicotine dependence, other tobacco product, uncomplicated; Z88.1 Allergy status to other antibiotic agents; Z90.89 Acquired absence of other organs; Z88.8 Allergy status to other drugs, medicaments and biological substances
CPT/HCPCS: 66984; J0697; J2250; J3010; V2632